=== PATIENT | male | born 1995 | race Caucasian/White ===

== ENCOUNTER 2016-10-29 20:36 | Emergency (ER) | payer BC, MEDICAID ==
--- NOTE | 2016-10-29 21:21 | Emergency Department Record ---
History of Present Illness - General Chief Complaint: Depression Stated Complaint: DEPRESSION Time Seen by Provider: 10/29/16 21:16 Source: Patient, Family - History of Present Illness Initial Comments: The patient has been depressed for a matter of weeks with depressed thoughts, depressed apetite, and depressed fluid intake due to excessive sleeping. He denies being suicidal or homicidal. The family brought him here for medical clearance prior to admitting him to an inpatient psychiatric unit. He has no medical complaints and is cooperative. Mom and Dad are at the bedside. MD Complaint: Feels depressed - Related Data Home Medications Medication Instructions Recorded Confirmed Last Taken Clonazepam 1 mg PO BID 10/29/16 10/29/16 10/29/16 Fluoxetine HCl [Prozac] 30 mg PO DAILY 10/29/16 10/29/16 10/29/16 Metronidazole [Rosadan] 45 gm TP BID 10/29/16 10/29/16 10/29/16 Nadide [Nicotinamide Adenine] 500 mg PO DAILY 10/29/16 10/29/16 10/29/16 Tretinoin/Emollient Base 1 applic TOP DAILY 10/29/16 10/29/16 10/28/16 [Tretinoin 0.05% Emollient Crm] Allergies Allergy/AdvReac Type Severity Reaction Status Date / Time No Known Drug Allergies Allergy Verified 10/29/16 21:16 Review of Systems Reviewed: No additional complaints except as noted below Constitutional: Reports: As per HPI. Denies: Chills, Fever, Malaise, Night sweats, Weakness, Weight change Eyes: Reports: As per HPI. Denies: Eye discharge, Eye pain, Photophobia, Vision change ENT: Reports: As per HPI. Denies: Congestion, Dental pain, Ear pain, Epistaxis , Hearing loss, Throat pain Respiratory: Reports: As per HPI. Denies: Cough, Dyspnea, Hemoptysis, Stridor, Wheezes Cardiovascular: Reports: As per HPI. Denies: Arrhythmia, Chest pain, Dyspnea on exertion, Edema, Murmurs, Orthopnea, Palpitations, Paroxysmal nocturnal dyspnea, Rheumatic Fever, Syncope Endocrine: Reports: As per HPI. Denies: Fatigue, Heat or cold intolerance, Polydipsia, Polyuria Gastrointestinal: Reports: As per HPI. Denies: Abdominal pain, Constipation, Diarrhea, Hematemesis, Hematochezia, Melena, Nausea, Vomiting Genitourinary: Reports: As per HPI. Denies: Dysuria, Frequency, Hematuria, Incontinence, Retention, Testicular pain, Testicular mass, Urgency Musculoskeletal: Reports: As per HPI. Denies: Arthralgia, Back pain, Gout, Joint swelling, Myalgia, Neck pain Skin: Reports: As per HPI. Denies: Bruising, Change in color, Change in hair/ nails, Lesions, Pruritus, Rash Neurological: Reports: As per HPI. Denies: Abnormal gait, Confusion, Headache, Numbness, Paresthesias, Seizure, Tingling, Tremors, Vertigo, Weakness Psychiatric: Reports: As per HPI. Denies: Anxiety, Auditory hallucinations, Depression, Homicidal thoughts, Suicidal thoughts, Visual hallucinations Hematological/Lymphatic: Reports: As per HPI. Denies: Anemia, Blood Clots, Easy bleeding, Easy bruising, Swollen glands Physical Exam - General General Appearance: Alert, Oriented x3, Cooperative, No acute distress - Head Head exam: Normal inspection Head exam detail: Other (acne) - Eye Eye exam: Normal appearance, PERRL Pupils: Normal accommodation - ENT ENT exam: Normal exam, Mucous membranes dry, Normal external ear exam, Normal orophraynx, TM's normal bilaterally Ear exam: Normal external inspection. negative: External canal tenderness Nasal Exam: Normal inspection. negative: Discharge, Sinus tenderness Mouth exam: Normal external inspection, Tongue normal Teeth exam: Normal inspection. negative: Dental caries Throat exam: Normal inspection. negative: Tonsillar erythema, Tonsillar exudate - Neck Neck exam: Normal inspection, Full ROM. negative: Tenderness - Respiratory Respiratory exam: Normal lung sounds bilaterally. negative: Respiratory distress - Cardiovascular Cardiovascular Exam: Regular rate, Normal rhythm, Normal heart sounds - GI/Abdominal GI/Abdominal exam: Soft, Normal bowel sounds. negative: Tenderness - Rectal Rectal exam: Deferred - exam: Deferred - Extremities Extremities exam: Normal inspection, Full ROM, Normal capillary refill. negative: Tenderness - Back Back exam: Reports: Normal inspection, Full ROM. Denies: Muscle spasm, Rash noted, Tenderness - Neurological Neurological exam: Alert, CN II-XII intact, Normal gait, Oriented X3, Reflexes normal. negative: Motor sensory deficit - Psychiatric Psychiatric exam: Normal affect, Normal mood - Skin Skin exam: Dry, Intact, Normal color, Warm Course - Reevaluation(s) Reevaluation #1: Patient is awaiting results and fluids to infuse and agrees to go with parents by car to his psychiatric care. 10/29/16 22:32 Medical Decision Making - Management Options MDM Management: Additional Work-up Planned (e.g. ADM/Transfer/OP Study) ( Transfer by care to [facility]) - Data Complexity MDM Data: Labs Ordered and/or Reviewed - Lab Data Result diagrams: 10/29/16 21:45 10/29/16 21:45 Disposition Disposition: Transfer Clinical Impression: Depression Qualifiers: Depression Type: major depressive disorder Major depression recurrence: recurrent Active/Remission status: currently active Major depression episode severity: moderate Qualified Code(s): F33.1 - Major depressive disorder, recurrent, moderate Disposition: Acute Care Hospital Transfer Return To Work/School Note Provided: No Decision to Admit: Admit from ER Decision to Admit Date: 10/29/16 Decision to Admit Time: 23:16 Transfer To: [facility] Reason For Transfer: Psychiatric admission Accepting Physician: RN at [facility] Time Discussed w/Accepting Physician: 23:17 Condition: (2) Stable Additional Instructions: Take patient by car to [facility] for inpatient Psychiatric care.
[2016-10-29 22:04] LABS: BASO % 0.3 % (0-6); EOS % 0.5 % (0-6); HEMATOCRIT 44.5 % (42.0-52.0); HEMOGLOBIN 15.2 gm/dl (14.0-18.0); LYMPH % 26.2 % (16-45); MEAN CELL VOLUME 86.7 fl (81-97); MEAN CORPUSCULAR HEMOGLOBIN 29.6 pg (27-33); MEAN CORPUSCULAR HGB CONC 34.2 g/dl (32-36); MEAN PLATELET VOLUME 9.7 fl (7.4-10.4); PLATELET COUNT 272 K/uL (130-400); RED BLOOD COUNT 5.13 M/uL (4.40-5.70); RED CELL DISTRIBUTION WIDTH 12.1 % (11.5-14.5); WHITE BLOOD COUNT W/O DIFF 6.2 K/uL (4.2-12.2)
[2016-10-29 22:12] LABS: ALBUMIN 4.8 gm/dL (3.5-5.0); BILIRUBIN,TOTAL 0.74 mg/dL (0.2-1.3); TOTAL PROTEIN 7.6 gm/dL (6.3-8.2)
[2016-10-29 22:13] LABS: AMYLASE 71 U/L (30-110); ANION GAP 9.7 (7-16); BLOOD UREA NITROGEN 14 mg/dL (9-20); CARBON DIOXIDE 31.3 mmol/L (22-30); CREATININE 0.9 mg/dL (0.66-1.25); EST GLOMERULAR FILTRATION RATE > 60 ml/min; GLUCOSE,RANDOM 79 mg/dL (70-110)
[2016-10-29 22:16] LABS: ACETAMINOPHEN < 10.0 ug/mL (10.0-30.0); SALICYLATE < 1.0 mg/dL (2.8-20.0)
[2016-10-29] MEDS ORDERED: 0.9 % SODIUM CHLORIDE 1,000 ML BAG IV ONE (22:28)
[2016-10-29 22:36] LABS: AMPHETAMINE SCREEN URINE NOT DETECTED; BARBITURATE SCREEN URINE NOT DETECTED; BENZODIAZEPINE SCREEN URINE NOT DETECTED; COCAINE SCREEN URINE NOT DETECTED; METHADONE SCREEN URINE NOT DETECTED; METHAMPHETAMINE SCREEN NOT DETECTED; OPIATE SCREEN URINE NOT DETECTED; OXYCODONE SCREEN URINE NOT DETECTED; PHENCYCLIDINE SCREEN URINE NOT DETECTED; PROPOXYPHENE SCREEN URINE NOT DETECTED; THC SCREEN URINE NOT DETECTED; TRICYCLIC ANTIDEPRESSANT SCRN NOT DETECTED
[2016-10-29 22:42] LABS: THYROID STIMULATING HORMONE 1.25 uIU/ml (0.465-4.68)
[2016-10-29 22:47] LABS: URINE APPEARANCE CLEAR; URINE BILIRUBIN NEGATIVE (NEGATIVE); URINE BLOOD NEGATIVE (NEGATIVE); URINE COLOR YELLOW; URINE GLUCOSE (UA) NEGATIVE (NEGATIVE); URINE KETONE TRACE (NEGATIVE); URINE LEUKOCYTE ESTERASE NEGATIVE (NEGATIVE); URINE NITRITE NEGATIVE (NEGATIVE); URINE PROTEIN NEGATIVE (NEGATIVE)
== END 2016-10-29 23:54 | disposition short-term general hospital (02) ==
LOC: ER 20:36
DX: F33.1 Major depressive disorder, recurrent, moderate (principal)
CPT/HCPCS: 99285 ×2; 83735; 82150; 85025; 80076; 80048; 81003; 84443; 80305; G0480 ×3; 80320; 80329

== ENCOUNTER 2018-12-28 14:40 | Emergency (ER) | payer BC, MEDICAID ==
--- NOTE | 2018-12-28 15:22 | Emergency Department Record ---
History of Present Illness - General Chief Complaint: Back Pain/Injury Stated Complaint: BACK PAIN Time Seen by Provider: 12/28/18 14:47 Source: Patient Mode of Arrival: Ambulatory Limitations: No limitations - History of Present Illness Initial Comments: The patient has had lower back pain for about 10 days. He did see a chiropractor who told him he may have an abscess. The patient denies any leg pain, weakness, fever, AP, or any bowel or bladder incontinence. MD Complaint: Back pain Onset/Timin -: Days(s) Improves With: None Worsens With: None Associated Symptoms: Denies other symptoms Treatments Prior to Arrival: Acetaminophen - Related Data Previous Rx's Medication Instructions Recorded Clindamycin HCl [Cleocin HCl] 300 mg PO QID #28 capsule 12/28/18 Allergies Allergy/AdvReac Type Severity Reaction Status Date / Time pollen extracts Allergy ITCHING Verified 12/28/18 14:55 Travel Screening - Travel/Exposure Within Last 30 Days Have you traveled within the last 30 days?: No - Travel/Exposure Within Last Year Have you traveled outside the [place] in the last year?: No - Additonal Travel Details Have you been exposed to anyone with a communicable illness?: No - Travel Symptoms Symptom Screening: None Review of Systems Constitutional: Denies: Chills, Fever Eyes: Denies: Eye discharge ENT: Denies: Congestion Respiratory: Denies: Cough, Dyspnea Past Medical History - SOCIAL HISTORY Smoking Status: Never smoker Alcohol Use: None Drug Use: None - RESPIRATORY Hx Respiratory Disorders: No - CARDIOVASCULAR Hx Cardio Disorders: No - NEURO Hx Neuro Disorders: No - GI Hx GI Disorders: No - Hx Genitourinary Disorders: No - ENDOCRINE Hx Endocrine Disorders: No - MUSCULOSKELETAL Hx Musculoskeletal Disorders: No - PSYCH Hx Depression: Yes - HEMATOLOGY/ONCOLOGY Hx Hematology/Oncology Disorders: No Family Medical History Any Significant Family History?: No Physical Exam - General General Appearance: Alert, Oriented x3, Cooperative, No acute distress - Head Head exam: Atraumatic, Normocephalic, Normal inspection - Eye Eye exam: Normal appearance, PERRL - Respiratory Respiratory exam: Normal lung sounds bilaterally. negative: Respiratory distress - Cardiovascular Cardiovascular Exam: Regular rate, Normal rhythm, Normal heart sounds - GI/Abdominal GI/Abdominal exam: Soft, Normal bowel sounds. negative: Tenderness - Rectal Rectal exam: Tenderness (There is a large Pilonidal abscess present that drained spontaneously with palpation.) - Extremities Extremities exam: Normal inspection, Full ROM, Normal capillary refill. negative: Tenderness Course Vital Signs 12/28/18 14:48 Temperature 98.6 F Pulse Rate 85 Respiratory 16 Rate Blood Pressure 108/67 Pulse Ox 100 - Reevaluation(s) Reevaluation #1: While examining the patient's pilonidal abscess it began to drain spontaneously. A large amount of purulence was expressed. The abscess was the probed with a sterile Qtip and then loosely packed with iodoform gauze. 12/28/18 15:20 Disposition Disposition: Discharge Clinical Impression: Pilonidal abscess Disposition: Home, Self-Care Condition: (2) Stable Instructions: Pilonidal Cyst (ED) Additional Instructions: Please keep dry for 2 days then remove the packing and soak every 3 hours in warm water for 20 minutes. Take the Clindamycin as directed and please see Dr. Vicente in the Specialty clinic Tuesday at 9:15 am. Prescriptions: Clindamycin HCl [Cleocin HCl] 300 mg PO QID #28 capsule Referrals: [facility] [Provider Group] Forms: Patient Portal Access Time of Disposition: 15:22 Quality - Quality Measures Quality Measures: N/A - Blood Pressure Screening View Details: Yes Does Patient Have Any of the Following: No Blood Pressure Classification: Normal BP Reading Systolic Measurement: 108 Diastolic Measurement: 67 Screening for High Blood Pressure: < Normal BP, F/U Not Required > [[id number]]
== END 2018-12-28 15:32 | disposition home or self-care (01) ==
LOC: ER 14:40
DX: L05.01 Pilonidal cyst with abscess (principal)
CPT/HCPCS: 99283